=== PATIENT | female | born 1990 | race African-American/Black ===

== ENCOUNTER 2017-05-03 09:49 | Emergency (ER) | payer SELFPAY ==
--- NOTE | 2017-05-03 10:15 | ER Document Report ---
ED General - General Chief Complaint: Skin Problem Stated Complaint: BREAST/STOMACH PAIN Time Seen by Provider: 05/03/17 10:06 Mode of Arrival: Ambulatory Information source: Patient Notes: 26-year-old female presents with 2 separate complaints. Patient's initial complaint is for intermittent rash throughout the body itching bug bites but the one on the left arm is swollen and tender. pt denies any fevers or chills. pt notes that she also has had increased urination TRAVEL OUTSIDE OF THE [place] IN LAST 30 DAYS: No - HPI Onset: Last week Onset/Duration: Worse Quality of pain: Achy Severity: Mild Pain Level: 1 Associated symptoms: Other Exacerbated by: Denies Relieved by: Denies Similar symptoms previously: No Recently seen / treated by doctor: No - Related Data Allergies/Adverse Reactions: No Known Allergies Allergy (Verified 05/06/16 10:31) Past Medical History - Social History Smoking Status: Never Smoker Cigarette use (# per day): No Chew tobacco use (# tins/day): No Smoking Education Provided: No Frequency of alcohol use: Occasional Drug Abuse: Marijuana Family History: Reviewed & Not Pertinent Patient has suicidal ideation: No Patient has homicidal ideation: No Renal/ Medical History: Denies: Hx Peritoneal Dialysis Review of Systems - Review of Systems Notes: REVIEW OF SYSTEMS: CONSTITUTIONAL : Denies fever, chills, or sweats. Denies recent illness. EENT: Denies eye, ear, throat, or mouth pain or symptoms. Denies nasal or sinus congestion or discharge. Denies throat, tongue, or mouth swelling or difficulty swallowing. CARDIOVASCULAR: Denies chest pain. Denies palpitations or racing or irregular heart beat. Denies ankle edema. RESPIRATORY: Denies cough, cold, or chest congestion. Denies shortness of breath, difficulty breathing, or wheezing. GASTROINTESTINAL: Denies abdominal pain or distention. Denies nausea, vomiting , or diarrhea. Denies blood in vomitus, stools, or per rectum. Denies black, tarry stools. Denies constipation. GENITOURINARY: Admits urinary frequency FEMALE GENITOURINARY: Denies vaginal bleeding, heavy or abnormal periods, irregular periods. Denies vaginal discharge or odor. MUSCULOSKELETAL: Denies back or neck pain or stiffness. Denies joint pain or swelling. SKIN: Admits to rash HEMATOLOGIC : Denies easy bruising or bleeding. LYMPHATIC: Denies swollen, enlarged glands. NEUROLOGICAL: Denies confusion or altered mental status. Denies passing out or loss of consciousness. Denies dizziness or lightheadedness. Denies headache. Denies weakness or paralysis or loss of use of either side. Denies problems with gait or speech. Denies sensory loss, numbness, or tingling. Denies seizures. PSYCHIATRIC: Denies anxiety or stress. Denies depression, suicidal ideation, or homicidal ideation. ALL OTHER SYSTEMS REVIEWED AND NEGATIVE. PHYSICAL EXAMINATION: GENERAL: Well-appearing, well-nourished and in no acute distress. HEAD: Atraumatic, normocephalic. EYES: Pupils equal round and reactive to light, extraocular movements intact, conjunctiva are normal. ENT: Nares patent, oropharynx clear without exudates. Moist mucous membranes. NECK: Normal range of motion, supple without lymphadenopathy LUNGS: Breath sounds clear to auscultation bilaterally and equal. No wheezes rales or rhonchi. HEART: Regular rate and rhythm without murmurs ABDOMEN: Soft, nontender, nondistended abdomen. No guarding, no rebound. No masses appreciated. Female : deferred Musculoskeletal: Normal range of motion, no pitting or edema. No cyanosis. NEUROLOGICAL: Cranial nerves grossly intact. Normal speech, normal gait. Normal sensory, motor exams PSYCH: Normal mood, normal affect. SKIN: Abscess noted left antecubital measuring 3 x 2 cm generalized rash which appears to be bug bites which have been picked at Dictation was performed using [employer] voice recognition software Physical Exam - Vital signs Vitals: Temp Pulse Resp BP Pulse Ox 98.7 F 82 16 133/69 H 97 05/03/17 09:51 05/03/17 09:51 05/03/17 09:51 05/03/17 09:51 05/03/17 09:51 Course - Re-evaluation Re-evalutation: 05/03/17 10:14 Patient initially was not forthcoming of her other complaints, I had asked her specifically based on the chief complaint she wrote on her paperwork, she will be treated for her incision and drainage of abscess as well as urinalysis for her urinary complaints 05/03/17 11:26 Patient's urinalysis noted no significant abnormality, I am unsure of the cause of her urinary frequency but it does not appear to be life-threatening at this time. I did explain wound care and follow-up regarding her abscess. After performing a Medical Screening Examination, I estimate there is LOW risk for OPEN FRACTURE, COMPARTMENT SYNDROME, TENDON RUPTURE, ACUTE NEUROVASCULAR INJURY, or RETAINED FOREIGN BODY, thus I consider the discharge disposition reasonable. Also, there is no evidence or peritonitis, sepsis, or toxicity. I have reevaluated this patient multiple times and no significant life threatening changes are noted. The patient and I have discussed the diagnosis and risks, and we agree with discharging home with close follow-up with the understanding that symptoms and presentations can change. We also discussed returning to the Emergency Department immediately if new or worsening symptoms occur. We have discussed the symptoms which are most concerning (e.g., changing or worsening pain, fever, numbness, weakness, cool or painful digits) that necessitate immediate return. - Vital Signs Vital signs: Temp Pulse Resp BP Pulse Ox 98.7 F 76 16 133/69 H 100 05/03/17 09:53 05/03/17 09:53 05/03/17 09:51 05/03/17 09:53 05/03/17 09:53 - Laboratory Laboratory results interpreted by me: 05/03/17 10:43 Urine Ascorbic Acid 40 H Procedures - Incision and Drainage Left Arm Time completed: 10:39 Type: Simple Anesthetic type: 1% Lidocaine mL's of anesthetic: 3 Blade size: 11 I&D procedure: Sterile dressing applied Incision Method: Incision made by scalpel Amount/type of drainage: small amount of blood and pus Discharge - Discharge Clinical Impression: abscess left antecubital, Urinary frequency Condition: Stable Disposition: HOME, SELF-CARE Instructions: Abscess ([facility]) Additional Instructions: Follow up with your physician tomorrow for further care or return to the ED IMMEDIATELY if symptoms worsen or new concerns occur. If you cannot afford to follow up with your primary care physician a list of low cost clinics have been provided at the end of your discharge papers as well. Prescriptions: Clindamycin HCl 300 mg PO Q6 #40 capsule
[2017-05-03 11:05] LABS: APPEARANCE,URINE CLEAR; BILIRUBIN,URINE NEGATIVE (NEGATIVE); GLUCOSE, URINE NEGATIVE (NEGATIVE); KETONES,URINE NEGATIVE (NEGATIVE); LEUKOCYTE ESTERASE,URINE NEGATIVE (NEGATIVE); NITRITE,URINE NEGATIVE (NEGATIVE); PROTEIN,URINE NEGATIVE (NEGATIVE); URINE SPECIFIC GRAVITY 1.029; UROBILINOGEN,URINE NEGATIVE mg/dL (<2.0)
[2017-05-03 11:30] VITALS: BP 103/57
== END 2017-05-03 11:30 | disposition home or self-care (01) ==
LOC: ER 09:49
PROC: 0H9EXZZ Drainage of Left Lower Arm Skin, External Approach (ICD-10-PCS; principal; 2017-05-03)
DX: L02.414 Cutaneous abscess of left upper limb (principal); R35.0 Frequency of micturition
CPT/HCPCS: 81001; 81025; 99283

== ENCOUNTER 2017-08-23 14:06 | Emergency (ER) | payer SELFPAY ==
[2017-08-23] MEDS ORDERED: AZITHROMYCIN 250 MG TABLET PO ONE (14:30)
[2017-08-23] MEDS ORDERED: CEFTRIAXONE INJ 250 MG VIAL IM ONE (14:30)
--- NOTE | 2017-08-23 14:32 | ER Document Report ---
ED GI/ - General Chief Complaint: Vaginal Discharge Stated Complaint: ABNORMAL VAGINAL DISCHARGE, ODOR Time Seen by Provider: 08/23/17 14:24 Mode of Arrival: Ambulatory Information source: Patient TRAVEL OUTSIDE OF THE [place] IN LAST 30 DAYS: No - HPI Patient complains to provider of: Vaginal discharge Notes: 08/23/17 14:31 The patient is here with complaints of vaginal discharge with a fishy odor. She states that this is been present for about a week now. She has had some occasional lower abdominal cramping, but denies any pain currently. She has had no fevers. She denies nausea, vomiting, diarrhea. She denies dysuria or hematuria. No vaginal bleeding. She is sexually active. She denies any chest pain or shortness of breath. No rashes. She denies any other complaints at this time. - Related Data Allergies/Adverse Reactions: No Known Allergies Allergy (Verified 08/23/17 14:08) Past Medical History - Social History Smoking Status: Unknown if Ever Smoked Family History: Reviewed & Not Pertinent Renal/ Medical History: Denies: Hx Peritoneal Dialysis Review of Systems - Review of Systems -: Yes All other systems reviewed and negative Physical Exam - Notes Notes: GENERAL: alert, cooperative, nontoxic, no distress. HEAD: normocephalic, atraumatic EYES: conjunctiva pink without discharge, no external redness or swelling. EARS: no external swelling, no external redness NOSE: atraumatic, no external swelling MOUTH/THROAT: mucous membranes moist and pink, posterior pharynx without erythema, swelling, exudate. No trismus or drooling. NECK: soft, supple, full range of motion, no meningismus. CHEST: no distress, lungs clear and equal throughout. No wheezing, rales, rhonchi. CARDIAC: regular rate and rhythm, no murmur, normal capillary refill, normal pulses. No peripheral edema noted. ABDOMEN: Soft, nontender. No rebound tenderness or guarding. No mass. BACK: full range of motion, no CVA tenderness. EXTREMITIES: full range of motion of all extremities. No redness, no swelling. NEURO: alert and oriented x 3, no focal deficits, full range of motion of all extremities. PYSCH: appropriate mood, affect. Patient is cooperative. SKIN: pink, warm, dry, no rash. : Performed with female paper twister at the bedside. No external lesions. White vaginal discharge present with a mild fishy odor. Cervix is closed. No cervical lesions. No cervical motion tenderness. No adnexal tenderness or masses on bimanual exam. Course - Re-evaluation Re-evalutation: 08/23/17 16:03 The patient is nontoxic appearing with stable vitals. She is here with vaginal odor and discharge. She has no abdominal tenderness on exam. No pelvic tenderness or cervical motion tenderness or signs of PID. Urinalysis shows no signs of infection and urine is negative. Wet prep is negative for acute findings. Gonorrhea and Chlamydia cultures are currently pending. The patient was treated prophylactically with Rocephin and Zithromax in the emergency department. This point the patient can be discharged home. She has no abdominal tenderness on exam. Tylenol or Motrin as needed for pain. Drink plenty fluids. Follow-up with primary care if her symptoms persist. Follow-up sooner for worsening symptoms, high fever, persistent vomiting, constant abdominal pain, or for any further concerns. The patient's emergency department workup and current diagnosis were explained to the patient and or family. Follow-up instructions were provided. Medications if prescribed were discussed. Instructions for when to return to the emergency department including specific worrisome symptoms were discussed with the patient and/or family. Discharge - Discharge Clinical Impression: Vaginal discharge Condition: Stable Disposition: HOME, SELF-CARE Instructions: Vaginitis ([facility]) Additional Instructions: Tylenol and Motrin as needed for pain. Drink plenty of fluids. Follow-up with primary care if not better in 1 week, sooner for worsening pain, high fever, persistent vomiting, severe constant abdominal pain, or for any further concerns. Forms: Smoking Cessation Education Referrals: [facility] [Provider Group] - Follow up as needed
[2017-08-23] MEDS ORDERED: LIDOCAINE 2% INJ-PF (20 MG/ML) 2 ML AMPUL INJ STA (14:52)
[2017-08-23] MEDS ORDERED: LIDOCAINE 1% INJ-PF (10 MG/ML) 30 ML SDV INFIL ONE (14:56)
[2017-08-23 14:59] LABS: APPEARANCE,URINE CLEAR; BILIRUBIN,URINE NEGATIVE (NEGATIVE); COLOR,URINE YELLOW; GLUCOSE, URINE NEGATIVE (NEGATIVE); KETONES,URINE NEGATIVE (NEGATIVE); LEUKOCYTE ESTERASE,URINE NEGATIVE (NEGATIVE); NITRITE,URINE NEGATIVE (NEGATIVE); PROTEIN,URINE NEGATIVE (NEGATIVE); URINE SPECIFIC GRAVITY 1.013; UROBILINOGEN,URINE NEGATIVE mg/dL (<2.0)
[2017-08-23 15:30] LABS: T.VAGINALIS (WET MOUNT) NO TRICHOMONAS SEEN; WBCS (WET MOUNT) FEW WBCS SEEN; YEAST (WET MOUNT) NO YEAST SEEN
[2017-08-23 16:21] VITALS: BP 113/64
[2017-08-23 16:49] LABS: CHLAM PCR NOT DETECTED (NOT DETECT); GON PCR NOT DETECTED (NOT DETECT)
== END 2017-08-23 16:21 | disposition home or self-care (01) ==
LOC: ER 14:06
DX: N89.8 Other specified noninflammatory disorders of vagina (principal); R10.30 Lower abdominal pain, unspecified
CPT/HCPCS: 99283; 96372; 87210; 81025; 81001; 87491; 87591; J3490; J0696

== ENCOUNTER 2017-10-23 14:06 | Emergency (ER) | payer OTHER ==
[2017-10-23 14:22] VITALS: BP 117/67
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
[2017-10-23] MEDS ORDERED: IBUPROFEN 800 MG TABLET PO ONE (15:12)
== END 2017-10-23 15:28 | disposition home or self-care (01) ==
LOC: ER 14:06
DX: S29.012A Strain of muscle and tendon of back wall of thorax, initial encounter (principal); M54.6 Pain in thoracic spine; M25.511 Pain in right shoulder; M25.512 Pain in left shoulder; V49.40XA Driver injured in collision with unspecified motor vehicles in traffic accident, initial encounter
CPT/HCPCS: 72070; 81025; 99284

== ENCOUNTER 2018-03-17 22:38 | Emergency (ER) | payer OTHER ==
[2018-03-17] MEDS ORDERED: LIDOCAINE 1%/EPINEPHRINE INJ 20 ML VIAL INJ ONE (23:15)
[2018-03-17] MEDS ORDERED: SULFAMETHOXAZOLE/TRIMETHOPRIM 800-160 MG TABLET PO ONE (23:15)
[2018-03-17] MEDS ORDERED: LIDOCAINE 1%/EPINEPHRINE INJ 20 ML VIAL ONE (23:15)
--- NOTE | 2018-03-17 23:21 | ER Document Report ---
ED General - General Chief Complaint: Abscess Stated Complaint: POSSIBLE INSECT BITE Time Seen by Provider: 03/17/18 22:54 Notes: Patient is a 27-year old female without chronic medical problems who presents with 24 hours of swelling and pain to an area on her left forearm. She states she believes she was bitten by a spider here but has never seen a spider bite to the area. She describes the area as having a dull, throbbing, constant pain. Touching the area worsens the pain. She has not trying to improve the pain. States this does feel similar to when she has had abscesses in the past. She denies any associated fever or constitutional symptoms. She has not seen her general doctor regarding today's concerns. TRAVEL OUTSIDE OF THE [place] IN LAST 30 DAYS: No - Related Data Allergies/Adverse Reactions: No Known Allergies Allergy (Verified 10/23/17 14:09) Past Medical History - General Information source: Patient - Social History Smoking Status: Never Smoker Frequency of alcohol use: None Drug Abuse: None Family History: Reviewed & Not Pertinent Renal/ Medical History: Denies: Hx Peritoneal Dialysis Review of Systems - Review of Systems Notes: Constitutional: Negative for fever. HENT: Negative for sore throat. Eyes: Negative for visual changes. Cardiovascular: Negative for chest pain. Respiratory: Negative for shortness of breath. Gastrointestinal: Negative for abdominal pain, vomiting or diarrhea. Genitourinary: Negative for dysuria. Musculoskeletal: Negative for back pain. Skin: Positive for left arm abscess Neurological: Negative for headaches, weakness or numbness. 10 point ROS negative except as marked above and in HPI. Physical Exam - Vital signs Vitals: Temp Pulse Resp BP Pulse Ox 98.6 F 81 16 113/60 98 03/17/18 22:49 03/17/18 22:49 03/17/18 22:49 03/17/18 22:49 03/17/18 22:49 Interpretation: Normal Notes: PHYSICAL EXAMINATION: GENERAL: Well-appearing, well-nourished and in no acute distress. HEAD: Atraumatic, normocephalic. EYES: Pupils equal round and reactive to light, extraocular movements intact, sclera anicteric, conjunctiva are normal. ENT: nares patent, oropharynx clear without exudates. Moist mucous membranes. NECK: Normal range of motion, supple without lymphadenopathy LUNGS: Breath sounds clear to auscultation bilaterally and equal. No wheezes rales or rhonchi. HEART: Regular rate and rhythm without murmurs ABDOMEN: Soft, nontender, normoactive bowel sounds. No guarding, no rebound. No masses appreciated. EXTREMITIES: Normal range of motion, no pitting or edema. No cyanosis. NEUROLOGICAL: No focal neurological deficits. Moves all extremities spontaneously and on command. PSYCH: Normal mood, normal affect. SKIN: Warm, Dry, normal turgor, there is a 1 x 2 cm abscess of the left forearm just below the level of the elbow Course - Re-evaluation Re-evalutation: 03/17/18 23:20 Patient presents with an abscess over her left proximal forearm just below the level of the elbow. No involvement of the joint itself, normal internal joint range of motion. No surrounding cellulitis. The abscess was incised and drained without any difficulty. Patient has been started on trimethoprim sulfamethoxazole. She does not meet sepsis criteria, no indication for labs or imaging. At this time will discharge with return precautions and follow-up recommendations. Verbal discharge instructions given a the bedside and opportunity for questions given. Medication warnings reviewed. Patient is in agreement with this plan and has verbalized understanding of return precautions and the need for primary care follow-up in the next 24-72 hours. - Vital Signs Vital signs: Temp Pulse Resp BP Pulse Ox 98.6 F 81 16 113/60 98 03/17/18 22:49 03/17/18 22:49 03/17/18 22:49 03/17/18 22:49 03/17/18 22:49 Procedures - Incision and Drainage Left Arm Type: Simple Anesthetic type: 1% Lidocaine w/epi mL's of anesthetic: 3 Blade size: 11 I&D procedure: Betadine prep applied Incision Method: Incision made by scalpel Amount/type of drainage: 2 cc of purulent drainage Discharge - Discharge Clinical Impression: Abscess of left arm Condition: Good Disposition: HOME, SELF-CARE Additional Instructions: You were seen for an abscess that required drainage. Please clean this area with soap and water twice daily and apply a topical antibiotic. Dress the area after each cleaning. Please return if you develop fever, vomiting, the pain at the site worsens, you notice spreading redness from the area, or you have any other symptoms that are concerning to you. Prescriptions: Sulfamethoxazole/Trimethoprim [Bactrim Ds Tablet] 2 tab PO BID #28 tablet
[2018-03-18 03:30] VITALS: BP 120/64
== END 2018-03-18 00:56 | disposition home or self-care (01) ==
LOC: ER 22:38
PROC: 0H9EXZZ Drainage of Left Lower Arm Skin, External Approach (ICD-10-PCS; principal; 2018-03-17)
DX: L02.414 Cutaneous abscess of left upper limb (principal)
CPT/HCPCS: 99281

== ENCOUNTER 2019-07-12 06:44 | Emergency (ER) | payer SELFPAY ==
[2019-07-12] MEDS ORDERED: TETRACAINE HCL 0.5% OPH SOLN 4 ML OS ONE (09:07)
[2019-07-12] MEDS ORDERED: IBUPROFEN 600 MG TABLET PO ONE (09:10)
--- NOTE | 2019-07-12 09:11 | ER Document Report ---
HPI - HPI Time Seen by Provider: 07/12/19 08:36 Pain Level: 3 Context: Patient is a 28-year-old female who presents the emergency department with a chief complaint of left eyelid swelling. She noticed it yesterday. She ended up falling asleep with her glasses on. She denies rubbing her eyes. Denies any eyeball pain. Denies any drainage from the eye. Patient states that she has some pressure in the left eye. - CONSTITUTIONAL Constitutional: DENIES: Fever, Chills - EENT EENT: REPORTS: Eye problems - pressure; lid edema. DENIES: Sore Throat, Ear Pain - NEURO Neurology: DENIES: Weakness, Vision blurred, Dizzinesss / Vertigo - CARDIOVASCULAR Cardiovascular: DENIES: Chest pain - RESPIRATORY Respiratory: DENIES: Trouble Breathing, Coughing - GASTROINTESTINAL Gastrointestinal: DENIES: Abdominal Pain, Black / Bloody Stools - URINARY Urinary: DENIES: Dysuria, Urgency, Frequency - REPRODUCTIVE Reproductive: DENIES: :, Postmenopausal, Abnormal bleeding / discharge - MUSCULOSKELETAL Musculoskeletal: DENIES: Extremity pain Past Medical History - Social History Smoking Status: Never Smoker Chew tobacco use (# tins/day): No Frequency of alcohol use: Occasional Drug Abuse: Marijuana Family History: Reviewed & Not Pertinent Patient has suicidal ideation: No Patient has homicidal ideation: No Renal/ Medical History: Denies: Hx Peritoneal Dialysis Vertical Provider Document - CONSTITUTIONAL Agree With Documented VS: Yes Exam Limitations: No Limitations General Appearance: No Apparent Distress - INFECTION CONTROL TRAVEL OUTSIDE OF THE [place] IN LAST 30 DAYS: No - HEENT HEENT: Atraumatic, Conjuctival Injection - left eye, Normocephalic, PERRLA - NECK Neck: Normal Inspection - RESPIRATORY Respiratory: Breath Sounds Normal, No Respiratory Distress - CARDIOVASCULAR Cardiovascular: Regular Rate, Regular Rhythm Pulses: Normal: Radial - MUSCULOSKELETAL/EXTREMETIES Musculoskeletal/Extremeties: FROM - NEURO Level of Consciousness: Awake, Alert, Appropriate Motor/Sensory: No Motor Deficit - DERM Integumentary: Warm, Dry, No Rash Course - Re-evaluation Re-evalutation: 07/12/19 10:05 Silverio-Pen readings are 18, 18, and 17. I have very low suspicion for any life- threatening etiology at this time. Negative Shania sign. Patient has erythema noted to her left eye. She will be started on Polytrim eyedrops. - Vital Signs Vital signs: Temp Pulse Resp BP Pulse Ox 97.9 F 70 14 126/72 H 98 07/12/19 06:48 07/12/19 06:48 07/12/19 07:58 07/12/19 06:48 07/12/19 06:48 Discharge - Discharge Clinical Impression: Conjunctivitis Qualifiers: Conjunctivitis type: acute Acute conjunctivitis type: viral Laterality: left Qualified Code(s): B30.9 - Viral conjunctivitis, unspecified Condition: Stable Disposition: HOME, SELF-CARE Additional Instructions: Your eye redness is likely due to a viral infection and should spontaneously resolve in the next 3-4 days. You have been sent home with a prescription for eyedrops which you can start if your symptoms worsen or fail to improve in that time. You can follow-up with 1 of the free clinics below. If you continue to have eye problems, please follow-up with ophthalmology. If you start the eyedrops, place 1 drop to your left eye 4 times a day for 7 days. I highly suggest you take ibuprofen, which is safe. You can take 600 mg every 6 hours as needed for swelling. Referrals: [facility] [Provider Group] - Follow up as needed [facility] [Provider Group] - Follow up as needed NAE MCDERMOTT MD [ACTIVE STAFF] - Follow up as needed
[2019-07-12] MEDS ORDERED: POLYMYXIN B SULFATE/TMP OPH SOLN (10 ML/ER DISP) OS ONE (10:05)
[2019-07-12 10:39] VITALS: BP 101/75
== END 2019-07-12 10:39 | disposition home or self-care (01) ==
LOC: ER 06:44
DX: B30.9 Viral conjunctivitis, unspecified (principal); F12.10 Cannabis abuse, uncomplicated
CPT/HCPCS: 99283; J3490 ×2